=== PATIENT | female | born 1945 | race Caucasian/White ===

== ENCOUNTER → 2016-03-22 | Outpatient (CLI) | payer MEDICARE ==
[~2016-03-22] MED LIST: BENTYL20 MG PO; CARVEDILOL6.25 MG PO; CRANBERRY FRUI425 MG PO; FUROSEMIDE20 MG PO; LEVOTHYROXINE PO; MULTIPLE VITAM1 EACH PO; PANTOPRAZOLE SO40 MG PO; VITAMIN D31000 I1 PO
== END ==
LOC: LAB 08:28
DX: E11.9 Type 2 diabetes mellitus without complications (principal); I10 Essential (primary) hypertension; E03.4 Atrophy of thyroid (acquired)

== ENCOUNTER → 2016-08-02 | Outpatient (CLI) | payer MEDICARE ==
[2015-12-08 23:00] VITALS: BP 139/70
== END ==
LOC: LAB 11:57
DX: N30.01 Acute cystitis with hematuria (principal)

== ENCOUNTER → 2016-12-16 | Outpatient (CLI) | payer MEDICARE ==
[2015-12-08 23:00] VITALS: BP 139/70
== END ==
LOC: LAB 13:58
DX: E78.5 Hyperlipidemia, unspecified (principal); E03.9 Hypothyroidism, unspecified; E11.8 Type 2 diabetes mellitus with unspecified complications

== ENCOUNTER → 2017-06-13 | Outpatient (CLI) | payer MEDICARE ==
[2015-12-08 23:00] VITALS: BP 139/70
[2017-06-13 10:52] LABS: ALBUMIN 3.7 g/dL (3.5-5.0); BUN/CREATININE RATIO 18.9 (6.0-26.0); CALCIUM 9.1 mg/dL (8.4-10.2); POTASSIUM 3.9 mmol/L (3.6-5.0); TOTAL BILIRUBIN 0.5 mg/dL (0.2-1.3); TOTAL PROTEIN 7.2 g/dL (6.3-8.2)
== END ==
LOC: LAB 10:26
PROVIDERS: Family Medicine
DX: E11.9 Type 2 diabetes mellitus without complications (principal); E03.9 Hypothyroidism, unspecified; I10 Essential (primary) hypertension; Z88.8 Allergy status to other drugs, medicaments and biological substances

== ENCOUNTER → 2018-01-05 | Outpatient (CLI) | payer MEDICARE ==
[2015-12-08 23:00] VITALS: BP 139/70
[2018-01-05 12:43] LABS: EOS # 0.3 (0.04-0.40); EOS % 4.4 % (1.0-5.0); HEMATOCRIT 36.8 % (37.0-47.0); HEMOGLOBIN 11.7 g/dL (12.5-16.0); LYMPH# 1.4 (1.50-4.00); MEAN CELL VOLUME 99 fl (78-100); MEAN CORPUSCULAR HEMOGLOBIN 31 pg (27-31); MEAN CORPUSCULAR HGB CONC 32 g/dL (33-37); MEAN PLATELET VOLUME 11.1 fl (7.4-10.4); MONO # 0.6 (0.20-0.80); NEU # 4.1 (1.40-6.50); PLATELET COUNT 223 K/mm3 (130-400); RED BLOOD COUNT 3.73 M/mm3 (4.10-5.30); RED CELL DISTRIBUTION WIDTH 15.3 % (11.5-14.5); WHITE BLOOD COUNT 6.4 K/mm3 (4.8-10.8)
[2018-01-05 13:08] LABS: CALCIUM 9.2 mg/dL (8.4-10.2); POTASSIUM 4.1 mmol/L (3.6-5.0); TOTAL BILIRUBIN 0.8 mg/dL (0.2-1.3); TOTAL PROTEIN 7.2 g/dL (6.3-8.2)
== END ==
LOC: LAB 12:21
PROVIDERS: Family Medicine
DX: Z01.419 Encounter for gynecological examination (general) (routine) without abnormal findings (principal); E78.5 Hyperlipidemia, unspecified; E03.9 Hypothyroidism, unspecified; E11.9 Type 2 diabetes mellitus without complications; M81.0 Age-related osteoporosis without current pathological fracture

== ENCOUNTER → 2018-01-10 | Outpatient (CLI) | payer MEDICARE ==
[2015-12-08 23:00] VITALS: BP 139/70
[2018-01-10 13:19] LABS: URINE APPEARANCE CLOUDY; URINE COLOR YELLOW
[2018-01-10 13:20] LABS: URINE BILIRUBIN NEGATIVE (NEGATIVE); URINE BLOOD 50 ery/uL (NEGATIVE); URINE GLUCOSE NEGATIVE (NEGATIVE); URINE KETONE NEGATIVE (NEGATIVE); URINE LEUKOCYTE ESTERASE 2+ (NEGATIVE); URINE NITRATE NEGATIVE (NEGATIVE); URINE PROTEIN(semi-quant) 2+ mg/dL (NEGATIVE); URINE UROBILINOGEN NORMAL (NORMAL)
[2018-01-10 13:23] LABS: URINE WBC >50 /hpf (0-3)
== END ==
LOC: LAB 12:19
PROVIDERS: Family Medicine
DX: R30.0 Dysuria (principal)

== ENCOUNTER → 2018-02-14 | Outpatient (CLI) | payer MEDICARE ==
[2015-12-08 23:00] VITALS: BP 139/70
== END ==
LOC: MAMMO 15:06
DX: Z12.31 Encounter for screening mammogram for malignant neoplasm of breast (principal)

== ENCOUNTER → 2018-06-07 | Outpatient (CLI) | payer MEDICARE ==
[2015-12-08 23:00] VITALS: BP 139/70
[2018-06-07 11:57] LABS: EOS # 0.2 (0.04-0.40); EOS % 3.9 % (1.0-5.0); HEMATOCRIT 35.7 % (37.0-47.0); HEMOGLOBIN 11.1 g/dL (12.5-16.0); LYMPH# 1.7 (1.50-4.00); MEAN CELL VOLUME 101 fl (78-100); MEAN CORPUSCULAR HEMOGLOBIN 31 pg (27-31); MEAN CORPUSCULAR HGB CONC 31 g/dL (33-37); MEAN PLATELET VOLUME 10.6 fl (7.4-10.4); MONO # 0.4 (0.20-0.80); NEU # 2.8 (1.40-6.50); PLATELET COUNT 217 K/mm3 (130-400); RED BLOOD COUNT 3.54 M/mm3 (4.10-5.30); RED CELL DISTRIBUTION WIDTH 13.5 % (11.5-14.5); WHITE BLOOD COUNT 5.2 K/mm3 (4.8-10.8)
[2018-06-07 13:24] LABS: ALBUMIN 3.7 g/dL (3.5-5.0); CALCIUM 9.3 mg/dL (8.4-10.2); POTASSIUM 3.9 mmol/L (3.6-5.0); TOTAL BILIRUBIN 0.5 mg/dL (0.2-1.3); TOTAL PROTEIN 7.1 g/dL (6.3-8.2)
== END ==
LOC: LAB 11:22
PROVIDERS: Family Medicine
DX: Z01.419 Encounter for gynecological examination (general) (routine) without abnormal findings (principal); E11.9 Type 2 diabetes mellitus without complications; E03.9 Hypothyroidism, unspecified; E78.5 Hyperlipidemia, unspecified; M81.0 Age-related osteoporosis without current pathological fracture

== ENCOUNTER → 2018-12-31 | Outpatient (CLI) | payer MEDICARE ==
[2015-12-08 23:00] VITALS: BP 139/70
[2018-12-31 12:46] LABS: ALBUMIN 3.7 g/dL (3.4-4.8)
[2018-12-31 12:47] LABS: POTASSIUM 4.5 mmol/L (3.5-5.1)
[2018-12-31 12:48] LABS: CALCIUM 9.6 mg/dL (8.3-10.5)
[2018-12-31 12:49] LABS: TOTAL PROTEIN 7.1 g/dL (6.2-8.1)
[2018-12-31 12:51] LABS: TOTAL BILIRUBIN 0.4 mg/dL (0.2-1.2)
== END ==
LOC: LAB 12:10
PROVIDERS: Family Medicine
DX: E11.9 Type 2 diabetes mellitus without complications (principal); E55.9 Vitamin D deficiency, unspecified; E03.9 Hypothyroidism, unspecified

== ENCOUNTER → 2019-07-31 | Outpatient (CLI) | payer MEDICARE ==
[2015-12-08 23:00] VITALS: BP 139/70
[2019-07-31 10:43] LABS: URINE APPEARANCE CLOUDY; URINE BILIRUBIN NEGATIVE (NEGATIVE); URINE COLOR YELLOW; URINE GLUCOSE NEGATIVE (NEGATIVE); URINE KETONE NEGATIVE (NEGATIVE); URINE PROTEIN(semi-quant) 2+ mg/dL (NEGATIVE); URINE UROBILINOGEN NORMAL (NORMAL)
[2019-07-31 10:44] LABS: URINE BLOOD 50 ery/uL (NEGATIVE); URINE LEUKOCYTE ESTERASE 2+ (NEGATIVE); URINE MUCUS PRESENT (NOT PRESENT); URINE NITRATE NEGATIVE (NEGATIVE); URINE WBC >50 /hpf (0-3)
== END ==
LOC: LAB 09:17
PROVIDERS: Family Medicine
DX: E11.9 Type 2 diabetes mellitus without complications (principal); E55.9 Vitamin D deficiency, unspecified; E03.9 Hypothyroidism, unspecified; R30.0 Dysuria